=== PATIENT | male | born 1985 | race Hispanic/Latino ===

== ENCOUNTER 2016-11-26 12:45 | Emergency (ER) | payer SELFPAY ==
[~2016-11-26] VITALS: Ht 165.1 cm; Wt 79.5 kg
[2016-11-26 12:51] VITALS: BP 143/99; PULSE 92; RESP 20; O2SAT 100
--- NOTE | 2016-11-26 14:21 | ED.REPORT ---
HPI-Dental/Mouth Prob Date of Service Nov 26, 2016 ED Provider: Walter Araujo MD History of Present Illness: bad teeth on the right side. primary care is no one. 02/21 took 900 mg excedrin migraine, minimal help Nursing Notes Stated Complaint: UPPER AND LOWER MOLAR PAIN,RIGHT SIDE Chief Complaint: Dental Nursing Notes Reviewed: Yes Allergies: Coded Allergies: No Known Allergies (Unverified , 11/26/16) General Time Seen by MD: 14:21 Chief Complaint Tooth pain Hx Obtained From: Patient Onset Occurred: More than a week ago... (2 weeks) Symptom Duration: Since onset Past Medical History Past Medical History Denies: Asthma, Diabetes mellitus Past Surgical History denies Smoking History Never Smoker Social History Alcohol Use: "Social" Drug Use: Denies drug use Other Social History: Occupation lives with , work at [employer] in [place] Review of Systems Basic Review of Systems Eyes: Vision NL, No discharge Endocrine: No cold intolerance, No heat intolerance, No weight gain, No weight loss Psychiatric: Normal thought content Physical Exam Initial Vital Signs Vital Signs (First) Date Time Temp Pulse Resp B/P Pulse Ox O2 Delivery O2 Flow Rate FiO2 11/26/16 12:51 37.2 92 20 143/99 100 Room Air Initial VS: Reviewed, Vital signs normal General/Constitutional: Well-developed, Well-nourished Head / Eyes: Atraumatic, Normocephalic, PERRL Respiratory: Breath sounds normal, Clear to auscultation, No respiratory distress Cardiovascular: Regular rate & rhythm, Heart sounds normal, Intact distal pulses Abdomen / GI: Soft, Non-tender, No guarding, No rebound, No distention Back: No CVA tenderness Lymphatic: No lymphadenopathy Extremities: Vascular intact, Neuro intact, No swelling, No tenderness Skin: Warm, Dry, No cyanosis Neurologic: Alert, Oriented, Nonfocal Psychiatric: Mood/affect normal, Behavior normal, Normal thought content ENT: Atraumatic, Airway patent, Mucous membranes moist, Pharynx NL Neck: Atraumatic, Supple, No meningismus General/Constitutional: Awake, Alert, No acute distress molars has extensive caries. The decay is in the normal pattern of decay, no sign of meth mouth. No gum swelling. able to open mouth 3 fingers wide. no lymph node enlargement Respiratory / Chest: Atraumatic, Breath sounds NL, Breath sounds = bilat, No respiratory distress Cardiovascular: Heart rate NL, Regular rhythm, Heart sounds NL, No gallop Neurologic: Oriented X3, Speech NL, No motor deficits Re-Eval/Medical Decision Med Decision/Clinical Course 31 year old male presents for evualation of teeth pain. Has been on going. Does not have dental care. Able to open wide, no sign of air way obstruction or peritonsil abscess. Provided resources Discharge & Departure Primary Impression: Toothache Disposition: Home Patient Instructions: Dental Caries (ED) Additional Instructions: You have extensive decay. You may need the teeth pulled. Please use the dental resources that have been provided. Remember [facility] in [place] is open Monday and may do walk ins. Please call to schedule. Start antibiotics amoxicillin 500 mg 3 times a day for 10 days. Use ketorolac 10 mg up to 4 times a day as needed for pain. Can use hydrocodone 1 at night as needed for severe unrelenting pain. #4 provided. Please establish in primary care, consider [facility]. Referrals: [facility] EDSupervising Provider for APC: Walter Araujo MD copies to: [facility] Emily Rivas Nov 26, 2016 14:21
[2016-11-26 15:38] VITALS: BP 143/99; PULSE 92; RESP 20; O2SAT 100
== END 2016-11-26 15:00 | disposition home or self-care (01) ==
LOC: SED 12:45
DX: K08.89 Other specified disorders of teeth and supporting structures (principal)
CPT/HCPCS: 96372; 99283; J1885